=== PATIENT | male | born 1960 | race Caucasian/White ===

== ENCOUNTER 2018-09-05 14:25 | Inpatient (IN) | payer SELFPAY ==
[~2018-09-05] VITALS: Ht 185.4 cm; Wt 84.8 kg
[2018-09-05] MEDS: SODIUM CHLORIDE 0.9% 1,000 ML IV SCH ×2 (06:00→16:00)
[2018-09-05] MEDS ORDERED: HEPARIN 5,000 UNITS/ML, 1ML IV PRN (15:00)
[2018-09-05] MEDS ORDERED: HEPARIN 25,000 UNITS/500ML PMX 500 ML IV PRN (15:00)
[2018-09-05] MEDS ORDERED: HEPARIN 5,000 UNITS/ML, 1ML IV ONE (15:00)
[2018-09-05] MEDS ORDERED: HEPARIN 5,000 UNITS/ML, 1ML ONE (15:30)
[2018-09-05] MEDS ORDERED: HEPARIN 25,000 UNITS/500ML PMX 500 ML ONE (15:30)
[2018-09-05] MEDS ORDERED: MIDAZOLAM 1 MG/ML, 5ML ONE ×2 (16:11→17:11)
[2018-09-05] MEDS ORDERED: FENTANYL PF 100 MCG/2ML ONE ×2 (16:11→17:11)
[2018-09-05] MEDS ORDERED: VERAPAMIL 2.5 MG/ML, 2ML ONE (16:11)
[2018-09-05] MEDS ORDERED: LIDOCAINE 2%, 20ML ONE (16:12)
[2018-09-05] MEDS ORDERED: HEPARIN 1,000 UNITS/ML, 10ML ONE (16:12)
[2018-09-05] MEDS ORDERED: BIVALIRUDIN 250 MG ONE ×2 (16:12→17:33)
[2018-09-05] MEDS ORDERED: ONDANSETRON 2MG/ML, 2ML IVPush PRN (17:30)
[2018-09-05] MEDS ORDERED: ACETAMINOPHEN 325 MG TABLET PO PRN (17:30)
[2018-09-05] MEDS ORDERED: ZOLPIDEM 5MG TABLET PO PRN (17:30)
[2018-09-05] MEDS ORDERED: SODIUM CHLORIDE 0.9% 1,000 ML IV SCH (17:30)
[2018-09-05] MEDS ORDERED: PRASUGREL 10 MG TABLET ONE (17:33)
[2018-09-05] MEDS: ATORVASTATIN 40 MG TABLET PO SCH (20:24)
[2018-09-05 20:29] VITALS: BP 156/93
[2018-09-05] MEDS ORDERED: BIVALIRUDIN 250 MG in SODIUM CHLORIDE 0.9% 50 ML IV SCH (23:30)
[2018-09-06] VITALS: BP 134/86
[2018-09-06 05:04] LABS: BASOPHILS # (AUTO) 0.06 x10^3/uL (0-0.1); BASOPHILS % (AUTO) 1 % (0-1); EOSINOPHILS # (AUTO) 0.37 x10^3/uL (0-0.4); EOSINOPHILS % (AUTO) 3 % (1-7); LYMPHOCYTES # (AUTO) 3.31 x10^3/uL (1-3.4); LYMPHOCYTES % (AUTO) 30 % (22-44); MD NO; MEAN CORPUSCULAR HEMOGLOBIN 32.1 pg (27.5-34.5); MEAN CORPUSCULAR HGB CONC 33.2 g/dL (33.2-36.2); MEAN CORPUSCULAR VOLUME 96.7 fL (81-97); MONOCYTES # (AUTO) 0.82 x10^3/uL (0.2-0.8); MONOCYTES % (AUTO) 7 % (2-9); NEUTROPHILS # (AUTO) 6.52 x10^3/uL (1.8-6.8); NEUTROPHILS % (AUTO) 59 % (42-75); PLATELET COUNT 227 x10^3/uL (130-400); RED BLOOD COUNT 4.81 x10^6/uL (4.38-5.82); RED CELL DISTRIBUTION WIDTH 13.2 % (9.4-14.8)
[2018-09-06 05:11] LABS: ALANINE AMINOTRANSFERASE 42 U/L (12-78); ALBUMIN 3.4 g/dL (3.4-5.0); ANION GAP 9 mmol/L (5-15); CALCIUM 8.5 mg/dL (8.5-10.1); CHLORIDE 108 mmol/L (98-107)
[2018-09-06 05:14] LABS: ALKALINE PHOSPHATASE 60 U/L (45-117); BILIRUBIN,TOTAL 0.5 mg/dL (0.2-1.0); CREATININE 0.97 mg/dL (0.7-1.3); TOTAL PROTEIN 6.4 g/dL (6.4-8.2)
[2018-09-06] MEDS: SODIUM CHLORIDE 0.9% 1,000 ML IV SCH (06:22)
[2018-09-06] MEDS: ASPIRIN 81 MG TABLET EC PO SCH (06:22)
[2018-09-06 08:49] VITALS: BP 138/88
[2018-09-06] MEDS: PRASUGREL 10 MG TABLET PO SCH (09:17)
[2018-09-06 14:08] VITALS: BP 132/81
[2018-09-06 19:48] VITALS: BP 155/81
[2018-09-06] MEDS: ATORVASTATIN 40 MG TABLET PO SCH (21:16)
[2018-09-07 02:11] VITALS: BP 127/84
[2018-09-07 04:27] LABS: ANION GAP 6 mmol/L (5-15); CALCIUM 8.5 mg/dL (8.5-10.1); CHLORIDE 111 mmol/L (98-107); CHOLESTEROL, TOTAL 239 mg/dL (140-239); CREATININE 0.94 mg/dL (0.7-1.3); TRIGLYCERIDES 215 mg/dL (50-200); VLDL CHOLESTEROL 43 mg/dL (0-25)
[2018-09-07 04:29] LABS: CHOL/HDL RATIO 5.3; HDL CHOL % 19 % (26-37); HDL CHOLESTEROL (DIRECT) 45 mg/dL (40-60); LDL CHOLESTEROL,CALCULATED 151 mg/dL (54-169); LDL/HDL RATIO 3.4 (0.5-3.0)
[2018-09-07] MEDS ORDERED: ATOR40TA78 PO (07:54)
[2018-09-07] MEDS ORDERED: ACET325T14 PO (07:54)
[2018-09-07] MEDS ORDERED: PRAS10TA4 PO (07:54)
[2018-09-07] MEDS ORDERED: ASPI81TA45 PO (07:54)
[2018-09-07] MEDS: PRASUGREL 10 MG TABLET PO SCH (08:00)
[2018-09-07] MEDS: ASPIRIN 81 MG TABLET EC PO SCH (08:00)
[2018-09-07 08:15] VITALS: BP 111/70
== END 2018-09-07 10:45 | disposition home or self-care (01) | DRG 247 ==
LOC: ED 15:23 → EDIP 15:24 → 5SO 17:57
PROVIDERS: ADMIT Internal Medicine Cardiovascular Disease; ATTEND Internal Medicine Cardiovascular Disease
PROC: 4A023N7 Measurement of Cardiac Sampling and Pressure, Left Heart, Percutaneous Approach (ICD-10-PCS; principal; 2018-09-05)
PROC: 027034Z Dilation of Coronary Artery, One Artery with Drug-eluting Intraluminal Device, Percutaneous Approach (ICD-10-PCS; 2018-09-05)
PROC: B2111ZZ Fluoroscopy of Multiple Coronary Arteries using Low Osmolar Contrast (ICD-10-PCS; 2018-09-05)
PROC: B2151ZZ Fluoroscopy of Left Heart using Low Osmolar Contrast (ICD-10-PCS; 2018-09-05)
PROC: B240ZZ3 Ultrasonography of Single Coronary Artery, Intravascular (ICD-10-PCS; 2018-09-05)
DX: I21.4 Non-ST elevation (NSTEMI) myocardial infarction (principal); I25.10 Atherosclerotic heart disease of native coronary artery without angina pectoris; E78.5 Hyperlipidemia, unspecified; Z87.891 Personal history of nicotine dependence; Z82.49 Family history of ischemic heart disease and other diseases of the circulatory system
CPT/HCPCS: 36415; J3490; 0399T; 80048; 80053; 80061; 84484; 85025; 85520; 92978; 93005; 93306; 93458; 96374; 96375; 99156; 99157; C1753; C1769; C1894; C9600; G0378; J0583; J1644; J2250; J3010; C1874; C1887; J7030; Q9967